=== PATIENT | female | born 1995 | race African-American/Black ===

== ENCOUNTER 2022-03-25 16:14 | Emergency (ER) | payer MEDICAID ==
[~2022-03-25] VITALS: Ht 160 cm; Wt 64.5 kg
[~2022-03-25 16:14] MED LIST: NORPTMEDS CO
[2022-03-25 16:48] VITALS: BP 113/49
== END 2022-03-25 23:30 | disposition left against medical advice (07) ==
LOC: ER 16:14
DX: B37.9 Candidiasis, unspecified (principal); Z53.21 Procedure and treatment not carried out due to patient leaving prior to being seen by health care provider